=== PATIENT | male | born 1995 | race Caucasian/White ===

== ENCOUNTER 2016-07-03 06:06 | Emergency (ER) | payer OTHER, MEDICAID ==
[~2016-07-03] VITALS: Ht 188 cm; Wt 86.4 kg
[2016-07-03 06:15] VITALS: BP 103/67; PULSE 71; RESP 16; O2SAT 99
--- NOTE | 2016-07-03 06:23 | ED.REPORT ---
HPI-Seizure Date of Service Jul 03, 2016 ED Provider: Joon Ojeda DO A 20 year old male with a history of a seizure 3 years ago (that accompanied a drug overdose) presents to the ED complaining of seizure that per mom occurred at 0530 today and lasted 5 minutes. The mom reports hearing a big bang from patient's room at 0530, went to check on the patient and found him with his head and feet on his bed, but his body off of it, his eyes were rolled into the back of his head, his body was stiff, he was drooling, and non responsive to mother. When eyes rolled forward, he appeared to stare "through" his mom. The incident lasted less than 5 minutes. Per mom, the patient does not remember the symptoms and fully awoke when they arrived in the ED parking lot. The patient denies any headache, back pain, or pain to his spine. After the seizure in the past, the patient had brain imaging done and was reported to be normal. He did not follow up with a neurologist for the past seizure. Per mom, the patient regularly smokes marijuana, but the patient denies recently smoking marijuana and denies any other drug use. The patient reports feeling fine now and that he wants to go home. Nursing Notes Stated Complaint: POSS SEIZURE Chief Complaint: Seizure Nursing Notes Reviewed: Yes Allergies: Coded Allergies: No Known Allergies (Unverified , 07/03/16) Scheduled Levetiracetam (Keppra) 500 Mg Tablet 500 MG PO BID General Time Seen by Provider: 06:22 Chief Complaint Chief Complaint: Seizure, generalized Hx Obtained From: Patient, Other family... (Mother) Arrived By: Walk-in Onset Occurred: 1 - 4 hours ago Symptom Duration: Duration unknown (Seizure lasted 5 minutes and patient became fully aware when they arrived at ED.) Recent Healthcare: No recent doctor visit Similar Sx Previous: Yes (seizure 3 years ago.) Past Medical History Past Medical History Seizure 3 years ago accompanying drug overdoes. Smoking History Smoker Current Status UNK Social History Drug Use: THC Ambulatory Status Independent Review of Systems Review of Systems Note: At onset of symptoms, body was stiff, patient was drooling, was nonresponsive to mother, had difficulty with speech. Musculoskeletal: Denies: Back pain (Denies back or spine pain.) Neurologic: Reports: Problem walking, Seizure, Slurred speech (Difficulty with speech), Denies: Headache Complete sys rev & neg: except as marked. Physical Exam Initial Vital Signs Vital Signs (First) Date Time Temp Pulse Resp B/P Pulse Ox O2 Delivery O2 Flow Rate FiO2 07/03/16 06:15 35.9 71 16 103/67 99 Room Air Initial VS: Reviewed General/Constitutional: Awake, Alert Neck: Atraumatic, Full range of motion Respiratory / Chest: Atraumatic, Breath sounds NL, Breath sounds = bilat, No respiratory distress, No rales, No rhonchi, No wheezing Cardiovascular: Heart rate NL, Regular rhythm, Heart sounds NL, No gallop, No murmurs, No rubs Neurologic: Oriented X3, Speech NL, No motor deficits, No sensory deficits, CN II - XII intact, Reflexes equal bilat, Cerebellar NL, Memory NL, Gait NL Head / Eyes: Atraumatic, Normocephalic, PERRL, EOMI ENT: Atraumatic, Mucous membranes moist Abdomen: Atraumatic, Soft, Non-tender, No guarding, No rebound Upper Extremity / MS: Atraumatic, Full range of motion Lower Extremity / Pelvis / MS: Atraumatic, Full range of motion Skin: Atraumatic, Color NL, No rash, Warm, Dry Back: Atraumatic, Full range of motion Re-Eval/Medical Decision Med Decision/Clinical Course Patient has returned to normal functional baseline, in the absence of other medical history and no persistent neurologic deficits, head CT and laboratory evaluation seem of low yield. Strongly encourage and recommend that the patient begin antiepileptic therapy due to recurrent seizures, recommended Keppra 1 g loading then Keppra 500 mg twice a day thereafter. Strongly recommended that the patient follow-up with neurology for EEG and other diagnostic evaluation. These recommendations were made directly to the patient and his mother, however the patient is resistant and refuses to start Keppra, additionally verbalizes that he will not follow up with a neurologist. Several attempts were made to convince the patient and address the barriers to his receiving ongoing care, however he is persistent in his opinion that this does not need further evaluation or treatment. The patient was discharged again as he has returned to normal functional baseline. He is prescribed Keppra 500 mg twice a day with a written prescription, he is given the phone number for the on-call neurologist for the hospital and recommended to follow-up with a neurologist for further ongoing care. Return and follow-up precautions were explicitly given verbally and on paper. Source of Hx: Old records Re-Evaluation/Progress : Time of Eval: 06:22 Re-Evaluation/Progress Note: Patient is persistent despite counselling with not accepting prescribed seizure medciation or follow up with a neurologist, mother at bedside and aware of recommendations. Counseled Regarding: Diagnosis, Lab results, Need for follow-up, When/why to return to ED Discharge & Departure Impression: Primary Impression: Seizure-like activity Disposition: Home Discharge Condition All VS Reviewed: Yes Condition: Stable Patient Instructions: Epilepsy (ED) Additional Instructions: Based on your history today, it sounds consistent with seizure. You should start taking Keppra 500 mg to twice a day. You should follow-up with a neurologist for further evaluation. You should return to the ER for any seizure lasting more than 15 minutes without relief, multiple seizures without return to normal baseline, significant head injury, persistent altered mental status, or any other concerns. Referrals: BRENDAN (PCP) Anaibe Attestation Portions of this note were transcribed by Pollo Downing. I, Dr. Ojeda, personally performed the history, physical exam, and medical decision-making; I reviewed and confirmed the accuracy of the information in the transcribed note. Signed by: Saira Hernandez, 07/03/2016, [id number]. copies to: Joon Torres DO Jul 03, 2016 06:23 Pollo Downing Jul 03, 2016 06:41
[2016-07-03] MEDS ORDERED: KEP500TA PO (06:47)
== END 2016-07-03 06:52 | disposition home or self-care (01) ==
LOC: SED 06:06
DX: R56.9 Unspecified convulsions (principal)